=== PATIENT | female | born 1990 | race Caucasian/White ===

== ENCOUNTER 2024-06-07 19:01 | Inpatient (IN) | payer MEDICAID, OTHER ==
[~2024-06-07] VITALS: Ht 157.5 cm; Wt 47.6 kg
[~2024-06-07 19:01] MED LIST: INSU3INS6 SUBCUT
[2024-06-07] MEDS: DEXTROSE 50% WATER 50ML SYRINGE IV ONE ×2 (19:44→21:46)
[2024-06-07] MEDS: NOREPINEPHRINE 8MG/250ML PMX 250 ML IV ONE (19:47)
[2024-06-07] MEDS: SODIUM CHLORIDE 0.9% (SEPSIS BOLUS) IV ONE (19:57)
[2024-06-07] MEDS ORDERED: EPINEPHRINE 10 MG in SODIUM CHLORIDE 0.9% 240 ML IV STA (20:00)
[2024-06-07] MEDS: CEFTRIAXONE 1GM/50ML 50 ML IV ONE (20:08)
[2024-06-07 20:32] LABS: BASOPHILS % 0.9 % (0.0-2.0); DIFFERENTIAL COMMENT 0; EOSINOPHILS % 3.3 % (0.0-5.0); LYMPHOCYTES % 11.3 % (20.0-50.0); MEAN CORPUSCULAR HEMOGLOBIN 28.3 pg (28.0-32.0); MEAN CORPUSCULAR HGB CONC 31.7 g/dL (31.0-37.0); MEAN CORPUSCULAR VOLUME 89.2 fL (81.0-99.0); MEAN PLATELET VOLUME 9.7 fl (7.4-10.4); MONOCYTES % 5.9 % (2.0-8.0); NEUTROPHILS % 78.6 % (40.0-76.0); PLATELET 151 x1000/uL (130-400); RED BLOOD CELL COUNT 2.09 mill/uL (4.2-5.4); RED CELL DISTRIBUTION WIDTH 16.8 % (11.6-14.6); WHITE BLOOD COUNT 7.8 x1000/uL (4.5-11.0)
[2024-06-07 20:35] LABS: CHLORIDE 116 mEq/L (98-107); SODIUM 137 mEq/L (136-145)
[2024-06-07 20:37] LABS: CALCIUM 6.6 mg/dL (8.7-10.4); HEMOGLOBIN. 5.9 g/dL (12.0-16.0)
[2024-06-07 20:38] LABS: HEMATOCRIT. 18.6 % (36.0-48.0)
[2024-06-07 20:42] LABS: TROPONIN I HIGH SENSITIVITY 17 ng/L (3.0-34)
[2024-06-07 20:43] LABS: ALANINE AMINOTRANSFERASE 12 IU/L (10-49); ALBUMIN 2.9 g/dL (3.2-4.8); ASPARTATE AMINOTRANSFERASE 15 IU/L (<34)
[2024-06-07 20:44] LABS: BILIRUBIN TOTAL < 0.2 mg/dL (0.1-1.0); HCG SCREEN NEGATIVE; PROTEIN TOTAL 5.3 g/dL (6.0-8.3)
[2024-06-07 20:46] LABS: INR 1.1; PROTHROMBIN TIME 12.5 sec (9.6-11.0)
[2024-06-07 20:52] LABS: BILIRUBIN DIRECT < 0.1 mg/dL (<=3.0)
[2024-06-07 20:53] LABS: CARBON DIOXIDE < 10 mEq/L (21-32)
[2024-06-07 20:54] LABS: CREATININE 12.4 mg/dL (0.6-1.0); GLUCOSE 40 mg/dL (70-105); UREA NITROGEN BLOOD 120 mg/dL (9-23)
[2024-06-07] MEDS ORDERED: FUROSEMIDE 40MG/4ML VIAL IV NR (20:54)
[2024-06-07] MEDS ORDERED: FUROSEMIDE 100MG/10ML VIAL IV STA (20:54)
[2024-06-07] MEDS ORDERED: EPINEPHRINE 10 MG in SODIUM CHLORIDE 0.9% 240 ML IV NR (21:00)
[2024-06-07] MEDS: ALBUTEROL (0.083%) 2.5MG/3ML NEB HHN ONE (21:00)
[2024-06-07] MEDS ORDERED: ACETAMINOPHEN 325MG TABLET PO PRN (21:15)
[2024-06-07] MEDS ORDERED: IPRATROPIUM/ALBUTEROL 0.5-3(2.5)MG/3ML NEB HHN PRN (21:15)
[2024-06-07] MEDS ORDERED: ONDANSETRON HCL 4MG/2ML INJ IV PRN (21:15)
[2024-06-07] MEDS ORDERED: GUAIFENESIN 200MG/10ML SUGAR FREE UDC PO PRN (21:15)
[2024-06-07] MEDS ORDERED: SODIUM BICARBONATE 8.4% 50MEQ/50ML SYR IV NR (21:45)
[2024-06-07] MEDS: CALCIUM CHLORIDE 1GM/10ML SYR IV ONE (21:46)
[2024-06-07] MEDS: SODIUM ZIRCONIUM CYCLOSILICATE 10GM/PACKET PO ONE (21:47)
[2024-06-07] MEDS: FUROSEMIDE 40MG/4ML VIAL IV NR (21:47)
[2024-06-07] MEDS: SODIUM BICARBONATE 8.4% 50MEQ/50ML SYR IV ONE (21:47)
[2024-06-07] MEDS: VANCOMYCIN 1G PREMIX 200 ML IV NR (22:07)
[2024-06-07] MEDS: SODIUM BICARBONATE 8.4% 50MEQ/50ML SYR IV NR (22:07)
[2024-06-07 22:15] LABS: BG BASE EXCESS -16.6 mmol/L (-2.0-3.0); BG CARBOXYHEMOGLOBIN 0.6 % (0.5-1.5); BG DEOXYHEMOGLOBIN 5.7 % (0.0-5.0); BG FRACTION INSPIRED OXYGEN 21; BG OXYGEN SATURATION 94.3 % (94.0-98.0); BG OXYHEMOGLOBIN 93.7 % (94.0-98.0); BG PCO2 33.5 mmHg (32.0-45.0); BG PH 7.136 (7.350-7.450); BG PO2 81.7 mmHg (83.0-108.0); BG SAMPLE SITE RIGHT RADIAL; BG TOTAL HEMOGLOBIN 6.6 g/dL (12.0-16.0); BG VENT MODE ROOM AIR
[2024-06-07 23:35] VITALS: PULSE 45; RESP 12; O2SAT 98
[2024-06-07 23:45] VITALS: BP 139/78; PULSE 45; RESP 15; O2SAT 99
[2024-06-07] MEDS ORDERED: ALBUTEROL (0.083%) 2.5MG/3ML NEB HHN NR (23:45)
[2024-06-08] VITALS (45 sets, daily range): BP systolic 107–197; BP diastolic 63–107; PULSE 45–95; RESP 10–19; TEMP 32.05812–38.892; O2SAT 94–100
[2024-06-08] MEDS: SODIUM POLYSTYRENE SULFONATE 15 G/60 ML BOT PO NR (00:09)
[2024-06-08] MEDS: CALCIUM CHLORIDE 1GM/10ML SYR IV NR ×2 (00:09→04:41)
[2024-06-08] MEDS: FAMOTIDINE 20MG/2ML VIAL IV SCH (00:09)
[2024-06-08] MEDS: DEXTROSE 50% WATER 50ML SYRINGE IV NR ×2 (00:11→04:41)
[2024-06-08] MEDS: INSULIN REGULAR (HUMULIN R) 1000UNITS/10ML VIAL IV NR ×2 (00:12→04:42)
[2024-06-08] MEDS: PIPERACILLIN/TAZO 3.375G/50ML IV SCH (00:35)
[2024-06-08 01:58] LABS: CHLORIDE 117 mEq/L (98-107); POTASSIUM 6.1 mEq/L (3.5-5.1); SODIUM 138 mEq/L (136-145)
[2024-06-08 02:00] LABS: CALCIUM 8.2 mg/dL (8.7-10.4)
[2024-06-08 02:04] LABS: GLUCOSE 79 mg/dL (70-105)
[2024-06-08] MEDS: MUPIROCIN 2% OINT 15GM TOP SCH (02:11)
[2024-06-08] MEDS: SODIUM BICARBONATE 100 MEQ in SODIUM CHLORIDE 0.45% 900 ML IV SCH (02:11)
[2024-06-08 02:14] LABS: HEMATOCRIT 24.5 % (36.0-48.0); HEMOGLOBIN 7.7 g/dL (12.0-16.0)
[2024-06-08 02:16] LABS: CARBON DIOXIDE < 10 mEq/L (21-32)
[2024-06-08 02:17] LABS: CREATININE 11.7 mg/dL (0.6-1.0); UREA NITROGEN BLOOD 103 mg/dL (9-23)
[2024-06-08 03:22] LABS: FERRITIN 612 ng/mL (10-291)
[2024-06-08 03:23] LABS: FOLIC ACID (FOLATE) SERUM 5.26 ng/mL (>5.38)
[2024-06-08 03:44] LABS: HEPATITIS B SURFACE ANTIGEN NEGATIVE (Negative)
[2024-06-08 03:54] LABS: HEPATITIS A AB IGM NEGATIVE (Negative); HEPATITIS B CORE AB IGM NEGATIVE (Negative)
[2024-06-08 03:55] LABS: HEPATITIS C AB NON REACTIVE (Neg) (Negative)
[2024-06-08 04:35] LABS: HIV 1/2 AB P24AG Negative (Negative)
[2024-06-08 04:55] LABS: VITAMIN B12 SERUM > 2000 pg/mL (211-911)
[2024-06-08] MEDS: CLONIDINE 0.1MG TABLET PO PRN (05:55)
[2024-06-08 06:48] LABS: CALCIUM 9.2 mg/dL (8.7-10.4); POTASSIUM 5.6 mEq/L (3.5-5.1)
[2024-06-08 06:50] LABS: CREATINE KINASE MB FRACTION 7.5 ng/mL (0.5-3.6)
[2024-06-08 06:53] LABS: HEMATOCRIT. 23.7 % (36.0-48.0); HEMOGLOBIN. 7.7 g/dL (12.0-16.0); MEAN CORPUSCULAR HGB CONC 32.3 g/dL (31.0-37.0); MEAN PLATELET VOLUME 9.4 fl (7.4-10.4); PLATELET 160 x1000/uL (130-400); RED BLOOD CELL COUNT 2.64 mill/uL (4.2-5.4); T4 FREE 0.65 ng/dL (0.89-1.76); WHITE BLOOD COUNT 7.3 x1000/uL (4.5-11.0)
[2024-06-08 06:54] LABS: THYROID STIMULATING HORMONE 4.87 uIU/mL (0.55-4.78)
[2024-06-08 07:05] LABS: DIFFERENTIAL COMMENT 1
[2024-06-08] MEDS: DEXTROSE 50% WATER 50ML SYRINGE IV PRN (08:09)
[2024-06-08] MEDS: DEXT 5%/0.45% NACL 1000ML 1,000 ML IV SCH (08:09)
[2024-06-08 08:27] LABS: PHOSPHORUS 8.9 mg/dL (2.5-4.9)
[2024-06-08] MEDS: LIDOCAINE HCL 1% 10 MG/ML 10ML VIAL ONE (09:30)
[2024-06-08] MEDS: SODIUM BICARBONATE 4% 2.4MEQ/5ML VIAL IV ONE (09:30)
[2024-06-08] MEDS: PIPERACILLIN/TAZO 3.375G/50ML 50 ML IV NR (09:33)
[2024-06-08 11:48] LABS: AMMONIA 81 uMol/L (<32)
[2024-06-08 13:22] LABS: BODY FLUID WBC 242 /cu mm (0-200)
[2024-06-08 13:23] LABS: BODY FLUID RBC 35 /cu mm (0-2000)
[2024-06-08] MEDS: HYDRALAZINE 20MG/ML VIAL IV NR ×2 (13:40→16:18)
[2024-06-08 13:55] LABS: BODY FLUID MONOCYTES 64 %
[2024-06-08] MEDS: SEVELAMER CARBONATE 800 MG TABLET PO SCH (14:22)
[2024-06-08] MEDS: MANNITOL 12.5G (25%) VIAL 50ML IV SCH (14:22)
[2024-06-08] MEDS: FOLIC ACID 1MG TABLET PO SCH (14:23)
[2024-06-08] MEDS: ACETAMINOPHEN 325MG TABLET PO PRN (14:24)
[2024-06-08 16:51] LABS: NUCLEATED RED BLOOD CELLS 1 /100 WBC
[2024-06-08 16:52] LABS: ANISOCYTOSIS 1+; PLATELET ESTIMATE NORMAL
[2024-06-08] MEDS: HYDRALAZINE HCL 25MG TABLET PO SCH (22:20)
[2024-06-09] VITALS (47 sets, daily range): BP systolic 147–185; BP diastolic 73–125; PULSE 72–91; RESP 8–16; TEMP 36.44736–37.16964; O2SAT 90–100
[2024-06-09 05:33] LABS: BASOPHILS % 0.8 % (0.0-2.0); EOSINOPHILS % 1.5 % (0.0-5.0); HEMATOCRIT. 23.5 % (36.0-48.0); HEMOGLOBIN. 7.9 g/dL (12.0-16.0); LYMPHOCYTES % 9.1 % (20.0-50.0); MEAN CORPUSCULAR HEMOGLOBIN 29.3 pg (28.0-32.0); MEAN CORPUSCULAR HGB CONC 33.5 g/dL (31.0-37.0); MEAN CORPUSCULAR VOLUME 87.4 fL (81.0-99.0); MEAN PLATELET VOLUME 9.2 fl (7.4-10.4); MONOCYTES % 7.4 % (2.0-8.0); NEUTROPHILS % 81.2 % (40.0-76.0); PLATELET 148 x1000/uL (130-400); RED BLOOD CELL COUNT 2.68 mill/uL (4.2-5.4); WHITE BLOOD COUNT 8.4 x1000/uL (4.5-11.0)
[2024-06-09 05:37] LABS: CARBON DIOXIDE 15 mEq/L (21-32); CHLORIDE 105 mEq/L (98-107); POTASSIUM 4.2 mEq/L (3.5-5.1); SODIUM 138 mEq/L (136-145)
[2024-06-09 05:38] LABS: CALCIUM 7.3 mg/dL (8.7-10.4)
[2024-06-09 05:42] LABS: IRON 27 ug/dL (50-170)
[2024-06-09 05:43] LABS: UREA NITROGEN BLOOD 62 mg/dL (9-23)
[2024-06-09 05:44] LABS: AMMONIA < 17 uMol/L (<32)
[2024-06-09 05:45] LABS: PHOSPHORUS 5.8 mg/dL (2.5-4.9); PREALBUMIN 11.3 mg/dl (10.0-40.0); TOTAL IRON BINDING CAPACITY 187 ug/dl (250-425)
[2024-06-09 06:15] LABS: CREATININE 7.5 mg/dL (0.6-1.0); GLUCOSE 406 mg/dL (70-105)
[2024-06-09] MEDS: BLOOD SUGAR DIAGNOSTIC STRIP TEST SCH (08:03)
[2024-06-09] MEDS: SODIUM BICARBONATE 100 MEQ in SODIUM CHLORIDE 0.45% 900 ML IV SCH (08:14)
[2024-06-09] MEDS: INSULIN LISPRO 100 UNITS/ML SUBCUT SCH ×2 (08:15→08:16)
[2024-06-09] MEDS: NIFEDIPINE XL 30MG TAB PO SCH (08:15)
[2024-06-09 09:07] LABS: COMPLEMENT C3 80 mg/dL (82-167); COMPLEMENT C4 30 mg/dL (12-38)
[2024-06-09 13:07] LABS: ANTI-NUCLEAR ANTIBODIES DIRECT Negative (Negative)
[2024-06-09] MEDS: VANCOMYCIN 500MG PREMIX 100 ML IV SCH (13:36)
[2024-06-09] MEDS: HYDRALAZINE HCL 25MG TABLET PO SCH (13:37)
[2024-06-09] MEDS ORDERED: HYDRALAZINE HCL 25MG TABLET PO SCH (14:00)
[2024-06-09 15:26] LABS: CLARITY URINE CLEAR (CLEAR); COLOR URINE YELLOW (YELLOW); GLUCOSE URINE 3+ (NEGATIVE); KETONES URINE 2+ (NEGATIVE); LEUKOCYTE ESTERASE URINE NEGATIVE (NEGATIVE); NITRITE URINE NEGATIVE (NEGATIVE); OCCULT BLOOD URINE 2+ (NEGATIVE); PROTEIN URINE 3+ (NEGATIVE); SPECIFIC GRAVITY URINE 1.017 (1.005-1.030); UROBILINOGEN URINE 0.2 E.U./dL (0.2-1.0)
[2024-06-09 16:00] LABS: WBC URINE 0-2 /hpf (0-2)
[2024-06-09 16:01] LABS: BACTERIA URINE NONE SEEN; RBC URINE 15-25 /hpf (0-2); SQUAMOUS EPITHELIAL CELL URINE RARE /lpf (RARE/1+)
[2024-06-09] MEDS: INSULIN GLARGINE 100 UNITS/ML SUBCUT SCH (21:29)
[2024-06-10] VITALS (14 sets, daily range): BP systolic 132–185; BP diastolic 77–106; PULSE 68–77; RESP 12–24; TEMP 36.22512–37.00296; O2SAT 92–100
[2024-06-10] MEDS: DEXT 10% WATER 1,000 ML IV SCH ×2 (06:48→13:00)
[2024-06-10 07:02] LABS: DIFFERENTIAL COMMENT 1; HEMATOCRIT. 23.2 % (36.0-48.0); HEMOGLOBIN. 7.5 g/dL (12.0-16.0); MEAN CORPUSCULAR HGB CONC 32.5 g/dL (31.0-37.0); MEAN CORPUSCULAR VOLUME 86.2 fL (81.0-99.0); MEAN PLATELET VOLUME 8.6 fl (7.4-10.4); PLATELET 146 x1000/uL (130-400); RED BLOOD CELL COUNT 2.69 mill/uL (4.2-5.4); RED CELL DISTRIBUTION WIDTH 15.8 % (11.6-14.6)
[2024-06-10 07:07] LABS: POTASSIUM 3.4 mEq/L (3.5-5.1)
[2024-06-10 07:08] LABS: CALCIUM 6.4 mg/dL (8.7-10.4)
[2024-06-10 07:16] LABS: PHOSPHORUS 4.6 mg/dL (2.5-4.9)
[2024-06-10] MEDS: INSULIN LISPRO 100 UNITS/ML SUBCUT SCH (07:20)
[2024-06-10 07:27] LABS: CREATININE 7.1 mg/dL (0.6-1.0)
[2024-06-10] MEDS: PANTOPRAZOLE SODIUM 40 MG/VIAL IV SCH (09:59)
[2024-06-10] MEDS: NIFEDIPINE XL 30MG TAB PO SCH (09:59)
[2024-06-10 10:26] LABS: ERYTHROCYTE SEDIMENTATION RATE 7 mm/hr (0-20)
[2024-06-10] MEDS: CALCIUM ACETATE 667MG CAPSULE PO SCH (12:20)
[2024-06-10] MEDS: VANCOMYCIN 500MG PREMIX 100 ML IV SCH (23:01)
[2024-06-10] MEDS: INSULIN GLARGINE 100 UNITS/ML SUBCUT SCH (23:07)
[2024-06-11] VITALS: BP 144/81; PULSE 83; RESP 13; TEMP 36.78072; O2SAT 95
[2024-06-11 00:22] LABS: CREATININE URINE RANDOM 87.3 mg/dL
[2024-06-11 04:00] VITALS: BP 153/78; PULSE 85; RESP 11; TEMP 37.11408; O2SAT 96
[2024-06-11 08:00] VITALS: BP 170/83; PULSE 83; RESP 12; TEMP 37.2252; O2SAT 94
[2024-06-11 08:04] LABS: PLATELET ESTIMATE NORMAL
[2024-06-11 11:58] LABS: BASOPHILS % 0.7 % (0.0-2.0); EOSINOPHILS % 4.9 % (0.0-5.0); LYMPHOCYTES % 12.3 % (20.0-50.0); MEAN CORPUSCULAR HEMOGLOBIN 29.1 pg (28.0-32.0); MEAN CORPUSCULAR HGB CONC 33.6 g/dL (31.0-37.0); MEAN CORPUSCULAR VOLUME 86.5 fL (81.0-99.0); MEAN PLATELET VOLUME 8.3 fl (7.4-10.4); MONOCYTES % 9.6 % (2.0-8.0); NEUTROPHILS % 72.5 % (40.0-76.0); PLATELET 131 x1000/uL (130-400); RED BLOOD CELL COUNT 2.43 mill/uL (4.2-5.4); RED CELL DISTRIBUTION WIDTH 16.1 % (11.6-14.6); WHITE BLOOD COUNT 7.1 x1000/uL (4.5-11.0)
[2024-06-11 12:00] VITALS: BP 159/90; PULSE 80; RESP 12; TEMP 36.83628; O2SAT 95
[2024-06-11 12:00] LABS: POTASSIUM 3.7 mEq/L (3.5-5.1)
[2024-06-11 12:02] LABS: CALCIUM 6.8 mg/dL (8.7-10.4)
[2024-06-11 12:42] LABS: CREATININE 5.2 mg/dL (0.6-1.0)
[2024-06-11] MEDS: MAGNESIUM/ALUMINUM HYDROXIDE/SIMETHICONE 30ML UDC PO PRN (13:31)
[2024-06-11 16:00] VITALS: BP 156/73; PULSE 71; RESP 14; TEMP 36.83628; O2SAT 98
[2024-06-11 20:00] VITALS: BP 153/83; PULSE 82; RESP 14; TEMP 36.9474; O2SAT 95
[2024-06-12] VITALS (24 sets, daily range): BP systolic 119–217; BP diastolic 72–111; PULSE 74–84; RESP 14–25; TEMP 36.61404–36.83628; O2SAT 85–99
[2024-06-12 08:02] LABS: POTASSIUM 4.1 mEq/L (3.5-5.1)
[2024-06-12 08:03] LABS: CALCIUM 6.6 mg/dL (8.7-10.4)
[2024-06-12 08:42] LABS: BASOPHILS % 1.5 % (0.0-2.0); EOSINOPHILS % 5.5 % (0.0-5.0); HEMATOCRIT. 21.9 % (36.0-48.0); HEMOGLOBIN. 7.1 g/dL (12.0-16.0); LYMPHOCYTES % 16.7 % (20.0-50.0); MEAN CORPUSCULAR HEMOGLOBIN 28.2 pg (28.0-32.0); MEAN CORPUSCULAR HGB CONC 32.3 g/dL (31.0-37.0); MEAN CORPUSCULAR VOLUME 87.3 fL (81.0-99.0); MEAN PLATELET VOLUME 8.4 fl (7.4-10.4); MONOCYTES % 9.1 % (2.0-8.0); NEUTROPHILS % 67.2 % (40.0-76.0); PLATELET 130 x1000/uL (130-400); RED BLOOD CELL COUNT 2.51 mill/uL (4.2-5.4); RED CELL DISTRIBUTION WIDTH 15.6 % (11.6-14.6); WHITE BLOOD COUNT 5.9 x1000/uL (4.5-11.0)
[2024-06-12 09:15] LABS: CREATININE 5.6 mg/dL (0.6-1.0)
[2024-06-12] MEDS: NIFEDIPINE XL 60MG TAB PO SCH (10:45)
[2024-06-12] MEDS: CLONIDINE 0.1MG TABLET PO SCH (13:03)
[2024-06-12] MEDS: HYDRALAZINE HCL 100MG TABLET PO SCH (13:15)
[2024-06-13] VITALS: BP 155/84; PULSE 89; RESP 16; TEMP 36.72516; O2SAT 92
[2024-06-13 04:00] VITALS: BP 163/94; PULSE 89; RESP 15; O2SAT 94
[2024-06-13 05:52] LABS: BASOPHILS % 1.1 % (0.0-2.0); EOSINOPHILS % 4.5 % (0.0-5.0); HEMATOCRIT. 32.4 % (36.0-48.0); HEMOGLOBIN. 10.5 g/dL (12.0-16.0); LYMPHOCYTES % 11.4 % (20.0-50.0); MEAN CORPUSCULAR HEMOGLOBIN 28.6 pg (28.0-32.0); MEAN CORPUSCULAR HGB CONC 32.5 g/dL (31.0-37.0); MEAN CORPUSCULAR VOLUME 88.1 fL (81.0-99.0); MEAN PLATELET VOLUME 8.6 fl (7.4-10.4); MONOCYTES % 7.1 % (2.0-8.0); NEUTROPHILS % 75.9 % (40.0-76.0); PLATELET 128 x1000/uL (130-400); RED BLOOD CELL COUNT 3.67 mill/uL (4.2-5.4); RED CELL DISTRIBUTION WIDTH 15.9 % (11.6-14.6)
[2024-06-13 05:55] LABS: POTASSIUM 4.5 mEq/L (3.5-5.1)
[2024-06-13 05:57] LABS: CALCIUM 6.8 mg/dL (8.7-10.4)
[2024-06-13 06:01] LABS: CREATININE 4.5 mg/dL (0.6-1.0)
[2024-06-13 06:12] LABS: INR 1.1; PARTIAL THROMBOPLASTIN TIME 29.8 sec (23.4-31.0); PROTHROMBIN TIME 11.7 sec (9.6-11.0)
[2024-06-13 08:00] VITALS: BP 176/94; PULSE 93; RESP 17; TEMP 36.89184; O2SAT 93
[2024-06-13] MEDS: LIDOCAINE HCL 1% 10 MG/ML 10ML VIAL ONE (08:07)
[2024-06-13] MEDS: SODIUM BICARBONATE 4% 2.4MEQ/5ML VIAL IV ONE (08:07)
[2024-06-13 12:00] VITALS: BP 128/80; PULSE 77; RESP 17; TEMP 36.78072; O2SAT 98
[2024-06-13] MEDS: INSULIN LISPRO 100 UNITS/ML SUBCUT SCH ×2 (12:41)
[2024-06-13 16:00] VITALS: BP 138/78; PULSE 79; RESP 19; TEMP 36.6696; O2SAT 94
[2024-06-13 20:00] VITALS: BP 137/77; PULSE 80; RESP 18; TEMP 36.78072; O2SAT 94
[2024-06-13] MEDS: INSULIN GLARGINE 100 UNITS/ML SUBCUT SCH (22:18)
[2024-06-14] VITALS (15 sets, daily range): BP systolic 123–164; BP diastolic 74–96; PULSE 69–81; RESP 16–28; TEMP 36.22512–37.11408; O2SAT 93–100
[2024-06-14 05:44] LABS: CALCIUM 6.7 mg/dL (8.7-10.4); POTASSIUM 4.7 mEq/L (3.5-5.1)
[2024-06-14 05:47] LABS: T4 FREE 0.95 ng/dL (0.89-1.76)
[2024-06-14 05:48] LABS: THYROID STIMULATING HORMONE 4.88 uIU/mL (0.55-4.78)
[2024-06-14 05:52] LABS: CREATININE 5.5 mg/dL (0.6-1.0)
[2024-06-14 06:21] LABS: BASOPHILS % 1.3 % (0.0-2.0); EOSINOPHILS % 5.2 % (0.0-5.0); HEMATOCRIT. 29.2 % (36.0-48.0); HEMOGLOBIN. 9.5 g/dL (12.0-16.0); LYMPHOCYTES % 16.9 % (20.0-50.0); MEAN CORPUSCULAR HEMOGLOBIN 28.7 pg (28.0-32.0); MEAN CORPUSCULAR HGB CONC 32.7 g/dL (31.0-37.0); MEAN CORPUSCULAR VOLUME 87.8 fL (81.0-99.0); MEAN PLATELET VOLUME 8.4 fl (7.4-10.4); MONOCYTES % 8.6 % (2.0-8.0); PLATELET 128 x1000/uL (130-400); RED BLOOD CELL COUNT 3.33 mill/uL (4.2-5.4); RED CELL DISTRIBUTION WIDTH 15.3 % (11.6-14.6); WHITE BLOOD COUNT 7.1 x1000/uL (4.5-11.0)
[2024-06-14] MEDS: CARVEDILOL 6.25 MG TABLET PO SCH (21:30)
[2024-06-15] VITALS (7 sets, daily range): BP systolic 98–189; BP diastolic 54–103; PULSE 70–85; RESP 15–18; TEMP 36.50292–36.83628; O2SAT 94–97
[2024-06-15] MEDS: HYDRALAZINE 20MG/ML VIAL IV PRN (06:56)
[2024-06-15 07:07] LABS: POTASSIUM 4.9 mEq/L (3.5-5.1)
[2024-06-15 07:09] LABS: CALCIUM 7.1 mg/dL (8.7-10.4)
[2024-06-15 07:13] LABS: CREATININE 4.6 mg/dL (0.6-1.0)
[2024-06-15 07:14] LABS: BASOPHILS % 1.1 % (0.0-2.0); EOSINOPHILS % 4.4 % (0.0-5.0); HEMATOCRIT. 31.4 % (36.0-48.0); HEMOGLOBIN. 10.1 g/dL (12.0-16.0); LYMPHOCYTES % 10.7 % (20.0-50.0); MEAN CORPUSCULAR HEMOGLOBIN 28.4 pg (28.0-32.0); MEAN CORPUSCULAR HGB CONC 32.2 g/dL (31.0-37.0); MEAN CORPUSCULAR VOLUME 88.3 fL (81.0-99.0); MEAN PLATELET VOLUME 8.3 fl (7.4-10.4); MONOCYTES % 8.5 % (2.0-8.0); NEUTROPHILS % 75.3 % (40.0-76.0); PLATELET 130 x1000/uL (130-400); RED BLOOD CELL COUNT 3.56 mill/uL (4.2-5.4); RED CELL DISTRIBUTION WIDTH 15.1 % (11.6-14.6); WHITE BLOOD COUNT 7.6 x1000/uL (4.5-11.0)
[2024-06-15] MEDS: INSULIN LISPRO 100 UNITS/ML SUBCUT SCH ×2 (07:57→17:37)
[2024-06-15] MEDS: NIFEDIPINE XL 60MG TAB PO SCH (08:29)
[2024-06-15 09:11] LABS: ANTI-MYELOPEROXIDASE AB < 0.2 units (0.0-0.9); ANTI-PROTEINASE 3 ABS < 0.2 units (0.0-0.9)
[2024-06-15] MEDS: LABETALOL HCL 100MG TABLET PO SCH (09:30)
[2024-06-15] MEDS: CLONIDINE 0.2MG TABLET PO SCH (12:15)
[2024-06-15 13:07] LABS: ATYPICAL P-ANCA <1:20 titer (Neg:<1:20); CYTOPLASMIC C-ANCA <1:20 titer (Neg:<1:20); PERINUCLEAR P-ANCA <1:20 titer (Neg:<1:20)
[2024-06-15] MEDS: INSULIN GLARGINE 100 UNITS/ML SUBCUT SCH (21:27)
[2024-06-15] MEDS ORDERED: INSULIN GLARGINE 100 UNITS/ML SUBCUT SCH (22:00)
[2024-06-15] MEDS: INSULIN LISPRO 100 UNITS/ML SUBCUT NR (23:55)
[2024-06-16] VITALS (17 sets, daily range): BP systolic 127–225; BP diastolic 86–118; PULSE 80–95; RESP 15–21; TEMP 36.44736–37.00296; O2SAT 92–99
[2024-06-16 07:15] LABS: BASOPHILS % 1.4 % (0.0-2.0); EOSINOPHILS % 4.6 % (0.0-5.0); HEMATOCRIT. 28.7 % (36.0-48.0); HEMOGLOBIN. 9.2 g/dL (12.0-16.0); LYMPHOCYTES % 13.7 % (20.0-50.0); MEAN CORPUSCULAR HEMOGLOBIN 28.2 pg (28.0-32.0); MEAN CORPUSCULAR HGB CONC 32.1 g/dL (31.0-37.0); MEAN CORPUSCULAR VOLUME 87.7 fL (81.0-99.0); MEAN PLATELET VOLUME 8.5 fl (7.4-10.4); NEUTROPHILS % 70.3 % (40.0-76.0); PLATELET 141 x1000/uL (130-400); RED BLOOD CELL COUNT 3.28 mill/uL (4.2-5.4); WHITE BLOOD COUNT 7.3 x1000/uL (4.5-11.0)
[2024-06-16 07:34] LABS: CHLORIDE 107 mEq/L (98-107); POTASSIUM 4.9 mEq/L (3.5-5.1); SODIUM 139 mEq/L (136-145)
[2024-06-16 07:35] LABS: CARBON DIOXIDE 25 mEq/L (21-32)
[2024-06-16 07:40] LABS: GLUCOSE 107 mg/dL (70-105); UREA NITROGEN BLOOD 59 mg/dL (9-23)
[2024-06-16 07:41] LABS: ALANINE AMINOTRANSFERASE 67 IU/L (10-49)
[2024-06-16 07:42] LABS: ALBUMIN 2.9 g/dL (3.2-4.8); ASPARTATE AMINOTRANSFERASE 47 IU/L (<34); BILIRUBIN TOTAL < 0.2 mg/dL (0.1-1.0); CREATININE 5.3 mg/dL (0.6-1.0); PROTEIN TOTAL 5.5 g/dL (6.0-8.3)
[2024-06-16] MEDS: NIFEDIPINE XL 30MG TAB PO SCH (08:04)
[2024-06-16] MEDS: ENOXAPARIN 30MG/0.3ML SYR SUBCUT SCH (11:00)
[2024-06-16] MEDS ORDERED: COR6 MT (14:33)
[2024-06-16] MEDS ORDERED: SPIR25TA MT (14:34)
[2024-06-16] MEDS ORDERED: LOSA50TA41 MT (14:34)
[2024-06-16] MEDS ORDERED: FURO-151 IV (14:34)
[2024-06-16] MEDS ORDERED: ALBU05 NEB (14:37)
[2024-06-16] MEDS ORDERED: ASPI-1406 MT (14:37)
[2024-06-16] MEDS ORDERED: LIP40 MT (14:38)
[2024-06-16] MEDS ORDERED: CLON-493 PO (14:38)
[2024-06-16] MEDS ORDERED: NALO4SPR IV (14:38)
[2024-06-16] MEDS ORDERED: TOPUD PO (14:39)
[2024-06-16] MEDS ORDERED: ONDA4TAB50 IV (14:39)
[2024-06-16] MEDS: TRAMADOL HCL/ACETAMINOPHEN 37.5/325MG TABLET PO NR (15:40)
[2024-06-16] MEDS: CLONIDINE 0.1MG TABLET PO PRN (16:37)
[2024-06-16] MEDS: ERGOCALCIFEROL 50000UNITS CAPSULE PO SCH (16:48)
[2024-06-16] MEDS: INSULIN LISPRO 100 UNITS/ML SUBCUT SCH (16:49)
[2024-06-16 17:10] LABS: CALCIUM 7.2 mg/dL (8.7-10.4)
[2024-06-16 17:17] LABS: CREATINE KINASE 167 IU/L (34-145); PHOSPHORUS 4.6 mg/dL (2.5-4.9)
[2024-06-16] MEDS: NIFEDIPINE XL 30MG TAB PO NR (17:57)
[2024-06-16] MEDS: DICLOFENAC SODIUM 1% GEL 50GM TOP SCH (22:19)
[2024-06-16] MEDS: CALCIUM CARBONATE/VITAMIN D3 500MG TABLET PO SCH (23:12)
[2024-06-17] VITALS (8 sets, daily range): BP systolic 101–207; BP diastolic 65–101; PULSE 76–98; RESP 13–21; TEMP 36.44736–37.72524; O2SAT 94–98
[2024-06-17 06:47] LABS: CHLORIDE 99 mEq/L (98-107); POTASSIUM 4.7 mEq/L (3.5-5.1); SODIUM 132 mEq/L (136-145)
[2024-06-17 06:48] LABS: CARBON DIOXIDE 24 mEq/L (21-32)
[2024-06-17 06:49] LABS: CALCIUM 7.4 mg/dL (8.7-10.4)
[2024-06-17 06:50] LABS: PROTHROMBIN TIME 10.9 sec (9.6-11.0)
[2024-06-17 06:53] LABS: GLUCOSE 267 mg/dL (70-105); UREA NITROGEN BLOOD 34 mg/dL (9-23)
[2024-06-17 06:55] LABS: ALBUMIN 2.9 g/dL (3.2-4.8); LACTATE DEHYDROGENASE 305 IU/L (120-246)
[2024-06-17 06:56] LABS: PHOSPHORUS 3.6 mg/dL (2.5-4.9)
[2024-06-17 07:58] LABS: BASOPHILS % 1.7 % (0.0-2.0); HEMATOCRIT. 29.2 % (36.0-48.0); HEMOGLOBIN. 9.6 g/dL (12.0-16.0); LYMPHOCYTES % 11.1 % (20.0-50.0); MEAN CORPUSCULAR HGB CONC 32.8 g/dL (31.0-37.0); MEAN CORPUSCULAR VOLUME 88.2 fL (81.0-99.0); MEAN PLATELET VOLUME 8.6 fl (7.4-10.4); MONOCYTES % 9.2 % (2.0-8.0); PLATELET 135 x1000/uL (130-400); RED BLOOD CELL COUNT 3.32 mill/uL (4.2-5.4); RED CELL DISTRIBUTION WIDTH 15.4 % (11.6-14.6); WHITE BLOOD COUNT 6.9 x1000/uL (4.5-11.0)
[2024-06-17] MEDS: NIFEDIPINE XL 30MG TAB PO SCH ×2 (09:04→17:28)
[2024-06-17] MEDS: LABETALOL HCL 200MG TABLET PO SCH (09:05)
[2024-06-17 12:47] LABS: PROTEIN BODY FLUID 2.6 gm/dL
[2024-06-17 12:48] LABS: PROTEIN BODY FLUID < 2.0 gm/dL
[2024-06-17 14:08] LABS: BODY FLUID MONOCYTES 64 %
[2024-06-17 14:13] LABS: BODY FLUID RBC 58125 /cu mm (0-2000); BODY FLUID WBC 222 /cu mm (0-200)
[2024-06-17 14:34] LABS: BODY FLUID RBC 908 /cu mm (0-2000); BODY FLUID WBC 158 /cu mm (0-200)
[2024-06-17 14:40] LABS: *AMPHETAMINES SCREEN URINE NEGATIVE (NEGATIVE); *BARBITURATES SCREEN URINE NEGATIVE (NEGATIVE); *BENZODIAZEPINES SCREEN URINE NEGATIVE (NEGATIVE); *COCAINE SCREEN URINE NEGATIVE (NEGATIVE)
[2024-06-17 14:41] LABS: BODY FLUID MONOCYTES 83 %
[2024-06-17 14:41] LABS: CANNABINOID URINE SCREEN NEGATIVE (NEGATIVE); ECSTASY MDMA SCREEN URINE NEGATIVE (NEGATIVE); METHADONE URINE SCREEN NEGATIVE (NEGATIVE); OPIATES URINE SCREEN NEGATIVE (NEGATIVE); PHENCYCLIDINE URINE SCREEN NEGATIVE (NEGATIVE)
[2024-06-17] MEDS ORDERED: IPRATROPIUM/ALBUTEROL 0.5-3(2.5)MG/3ML NEB HHN PRN (16:00)
[2024-06-18] VITALS (17 sets, daily range): BP systolic 138–173; BP diastolic 78–94; PULSE 78–88; RESP 14–19; TEMP 36.44736–37.28076; O2SAT 93–98
[2024-06-18] MEDS: SODIUM BICARBONATE 4% 2.4MEQ/5ML VIAL IV ONE (08:32)
[2024-06-18 09:21] LABS: BASOPHILS % 1.3 % (0.0-2.0); EOSINOPHILS % 4.2 % (0.0-5.0); HEMATOCRIT. 28.3 % (36.0-48.0); HEMOGLOBIN. 9.1 g/dL (12.0-16.0); LYMPHOCYTES % 14.5 % (20.0-50.0); MEAN CORPUSCULAR HEMOGLOBIN 28.7 pg (28.0-32.0); MEAN CORPUSCULAR HGB CONC 32.4 g/dL (31.0-37.0); MEAN CORPUSCULAR VOLUME 88.6 fL (81.0-99.0); MEAN PLATELET VOLUME 8.9 fl (7.4-10.4); MONOCYTES % 8.6 % (2.0-8.0); NEUTROPHILS % 71.4 % (40.0-76.0); PLATELET 153 x1000/uL (130-400); RED BLOOD CELL COUNT 3.19 mill/uL (4.2-5.4); WHITE BLOOD COUNT 6.8 x1000/uL (4.5-11.0)
[2024-06-18 09:50] LABS: CHLORIDE 104 mEq/L (98-107); POTASSIUM 5.8 mEq/L (3.5-5.1); SODIUM 134 mEq/L (136-145)
[2024-06-18 09:53] LABS: CALCIUM 7.6 mg/dL (8.7-10.4); CARBON DIOXIDE 26 mEq/L (21-32)
[2024-06-18 09:58] LABS: GLUCOSE 212 mg/dL (70-105); UREA NITROGEN BLOOD 56 mg/dL (9-23)
[2024-06-18 09:59] LABS: ALANINE AMINOTRANSFERASE 41 IU/L (10-49)
[2024-06-18 10:00] LABS: ALBUMIN 2.9 g/dL (3.2-4.8); ASPARTATE AMINOTRANSFERASE 25 IU/L (<34)
[2024-06-18 10:01] LABS: BILIRUBIN TOTAL < 0.2 mg/dL (0.1-1.0); PROTEIN TOTAL 5.4 g/dL (6.0-8.3)
[2024-06-18 10:03] LABS: BILIRUBIN DIRECT < 0.1 mg/dL (<=3.0)
[2024-06-18 10:04] LABS: CREATININE 5.4 mg/dL (0.6-1.0)
[2024-06-19 00:05] VITALS: BP 163/87; PULSE 95; RESP 15; TEMP 36.55848; O2SAT 99
[2024-06-19 04:05] VITALS: BP 157/88; PULSE 87; RESP 13; TEMP 36.44736; O2SAT 96
[2024-06-19 06:45] LABS: BASOPHILS % 1.4 % (0.0-2.0); EOSINOPHILS % 4.6 % (0.0-5.0); HEMATOCRIT. 28.3 % (36.0-48.0); HEMOGLOBIN. 9.1 g/dL (12.0-16.0); LYMPHOCYTES % 12.6 % (20.0-50.0); MEAN CORPUSCULAR HEMOGLOBIN 28.3 pg (28.0-32.0); MEAN CORPUSCULAR HGB CONC 32.1 g/dL (31.0-37.0); MEAN CORPUSCULAR VOLUME 88.2 fL (81.0-99.0); MEAN PLATELET VOLUME 8.7 fl (7.4-10.4); MONOCYTES % 8.5 % (2.0-8.0); NEUTROPHILS % 72.9 % (40.0-76.0); PLATELET 162 x1000/uL (130-400); RED BLOOD CELL COUNT 3.21 mill/uL (4.2-5.4); WHITE BLOOD COUNT 7.7 x1000/uL (4.5-11.0)
[2024-06-19 07:11] LABS: CARBON DIOXIDE 27 mEq/L (21-32); CHLORIDE 106 mEq/L (98-107); POTASSIUM 4.8 mEq/L (3.5-5.1); SODIUM 140 mEq/L (136-145)
[2024-06-19 07:12] LABS: CALCIUM 7.5 mg/dL (8.7-10.4)
[2024-06-19 07:17] LABS: CREATININE 4.2 mg/dL (0.6-1.0); GLUCOSE 168 mg/dL (70-105); UREA NITROGEN BLOOD 42 mg/dL (9-23)
[2024-06-19 08:00] VITALS: BP 189/94; PULSE 88; RESP 19; TEMP 36.61404; O2SAT 99
[2024-06-19 12:00] VITALS: BP 191/95; PULSE 82; RESP 20; TEMP 36.83628; O2SAT 99
[2024-06-19] MEDS: CLONIDINE 0.2MG TABLET PO SCH (12:53)
[2024-06-19 16:00] VITALS: BP 178/96; PULSE 75; RESP 18; TEMP 36.72516; O2SAT 96
[2024-06-19 20:05] VITALS: BP 147/81; PULSE 79; RESP 10; TEMP 36.28068; O2SAT 97
[2024-06-19] MEDS: MELATONIN 3MG TABLET PO SCH (21:54)
[2024-06-20] VITALS (15 sets, daily range): BP systolic 142–177; BP diastolic 79–96; PULSE 80–92; RESP 13–18; TEMP 36.22512–36.83628; O2SAT 97–99
[2024-06-20 06:27] LABS: BASOPHILS % 1.7 % (0.0-2.0); EOSINOPHILS % 5.7 % (0.0-5.0); HEMATOCRIT. 29.3 % (36.0-48.0); HEMOGLOBIN. 9.4 g/dL (12.0-16.0); LYMPHOCYTES % 12.7 % (20.0-50.0); MEAN CORPUSCULAR HEMOGLOBIN 28.6 pg (28.0-32.0); MEAN CORPUSCULAR HGB CONC 31.9 g/dL (31.0-37.0); MEAN CORPUSCULAR VOLUME 89.7 fL (81.0-99.0); MEAN PLATELET VOLUME 8.7 fl (7.4-10.4); MONOCYTES % 8.1 % (2.0-8.0); NEUTROPHILS % 71.8 % (40.0-76.0); PLATELET 187 x1000/uL (130-400); RED BLOOD CELL COUNT 3.26 mill/uL (4.2-5.4); RED CELL DISTRIBUTION WIDTH 14.9 % (11.6-14.6); WHITE BLOOD COUNT 8.2 x1000/uL (4.5-11.0)
[2024-06-20 06:45] LABS: CARBON DIOXIDE 26 mEq/L (21-32); CHLORIDE 105 mEq/L (98-107); POTASSIUM 5.8 mEq/L (3.5-5.1); SODIUM 137 mEq/L (136-145)
[2024-06-20 06:47] LABS: CALCIUM 7.5 mg/dL (8.7-10.4)
[2024-06-20 06:51] LABS: GLUCOSE 351 mg/dL (70-105)
[2024-06-20 06:52] LABS: UREA NITROGEN BLOOD 54 mg/dL (9-23)
[2024-06-20 06:54] LABS: PHOSPHORUS 5.1 mg/dL (2.5-4.9)
[2024-06-20 06:55] LABS: CREATININE 5.3 mg/dL (0.6-1.0)
[2024-06-20 08:11] LABS: ALPHA FETOPROTEIN TUMOR MARKER 2.4 ng/mL (0.0-6.4)
[2024-06-20] MEDS ORDERED: SODIUM POLYSTYRENE SULFONATE 15 G/60 ML BOT PO ONE (08:15)
[2024-06-20] MEDS: SODIUM ZIRCONIUM CYCLOSILICATE 10GM/PACKET PO NR (08:40)
[2024-06-20] MEDS ORDERED: INSULIN GLARGINE 100 UNITS/ML SUBCUT SCH (22:00)
[2024-06-20] MEDS: INSULIN GLARGINE 100 UNITS/ML SUBCUT SCH (22:30)
[2024-06-21 00:10] VITALS: BP 192/92; PULSE 90; RESP 13; TEMP 36.50292; O2SAT 98
[2024-06-21 04:08] LABS: CHLAMYDIA TRACHOMATIS NAA Negative (Negative); NEISSERIA GONORRHOEAE NAA Negative (Negative)
[2024-06-21 04:10] VITALS: BP 142/82; PULSE 85; RESP 15; TEMP 36.50292
[2024-06-21 07:24] LABS: CHLORIDE 104 mEq/L (98-107); SODIUM 140 mEq/L (136-145)
[2024-06-21 07:25] LABS: CALCIUM 7.8 mg/dL (8.7-10.4); CARBON DIOXIDE 31 mEq/L (21-32)
[2024-06-21 07:30] LABS: CREATININE 4.3 mg/dL (0.6-1.0); GLUCOSE 82 mg/dL (70-105); UREA NITROGEN BLOOD 46 mg/dL (9-23)
[2024-06-21 07:32] LABS: PHOSPHORUS 3.9 mg/dL (2.5-4.9)
[2024-06-21 07:57] LABS: MEAN CORPUSCULAR HEMOGLOBIN 28.3 pg (28.0-32.0); MEAN CORPUSCULAR HGB CONC 32.2 g/dL (31.0-37.0); MEAN CORPUSCULAR VOLUME 88.1 fL (81.0-99.0); PLATELET 208 x1000/uL (130-400); RED BLOOD CELL COUNT 3.18 mill/uL (4.2-5.4); RED CELL DISTRIBUTION WIDTH 14.7 % (11.6-14.6); WHITE BLOOD COUNT 7.7 x1000/uL (4.5-11.0)
[2024-06-21 08:00] VITALS: BP 150/88; PULSE 85; RESP 15; TEMP 37.05852; O2SAT 97
[2024-06-21] MEDS: CALCIUM ACETATE 667MG CAPSULE PO SCH (08:55)
[2024-06-21 12:00] VITALS: BP 189/94; PULSE 83; RESP 13; TEMP 36.78072; O2SAT 97
[2024-06-21 16:00] VITALS: BP 144/86; PULSE 82; RESP 11; TEMP 36.72516; O2SAT 100
[2024-06-21 20:00] VITALS: BP 136/79; PULSE 95; RESP 14; TEMP 36.78072; O2SAT 96
[2024-06-22] VITALS (13 sets, daily range): BP systolic 128–197; BP diastolic 72–102; PULSE 84–100; RESP 13–20; TEMP 36.55848–37.55856; O2SAT 64–98
[2024-06-22 07:28] LABS: BASOPHILS % 1.9 % (0.0-2.0); EOSINOPHILS % 5.6 % (0.0-5.0); HEMATOCRIT. 27.1 % (36.0-48.0); HEMOGLOBIN. 8.6 g/dL (12.0-16.0); LYMPHOCYTES % 14.6 % (20.0-50.0); MEAN CORPUSCULAR HEMOGLOBIN 28.3 pg (28.0-32.0); MEAN CORPUSCULAR HGB CONC 31.6 g/dL (31.0-37.0); MEAN CORPUSCULAR VOLUME 89.6 fL (81.0-99.0); MEAN PLATELET VOLUME 8.1 fl (7.4-10.4); MONOCYTES % 7.1 % (2.0-8.0); NEUTROPHILS % 70.8 % (40.0-76.0); PLATELET 211 x1000/uL (130-400); RED BLOOD CELL COUNT 3.02 mill/uL (4.2-5.4); RED CELL DISTRIBUTION WIDTH 14.7 % (11.6-14.6); WHITE BLOOD COUNT 8.1 x1000/uL (4.5-11.0)
[2024-06-22 07:40] LABS: CALCIUM 7.9 mg/dL (8.7-10.4); CARBON DIOXIDE 29 mEq/L (21-32); CHLORIDE 103 mEq/L (98-107); POTASSIUM 5.9 mEq/L (3.5-5.1); SODIUM 137 mEq/L (136-145)
[2024-06-22 07:46] LABS: GLUCOSE 113 mg/dL (70-105); UREA NITROGEN BLOOD 61 mg/dL (9-23)
[2024-06-22 07:48] LABS: PHOSPHORUS 4.1 mg/dL (2.5-4.9)
[2024-06-22 08:03] LABS: CREATININE 5.2 mg/dL (0.6-1.0)
[2024-06-22] MEDS: SODIUM POLYSTYRENE SULFONATE 15 G/60 ML BOT PO SCH (08:56)
[2024-06-22] MEDS: METOPROLOL TARTRATE 25MG TABLET PO NR (17:46)
[2024-06-22] MEDS ORDERED: NALOXONE HCL 0.4MG/ML VIAL IV PRN (18:45)
[2024-06-22] MEDS: TRAMADOL 50MG TABLET PO PRN (21:36)
[2024-06-22] MEDS: METOPROLOL TARTRATE 25MG TABLET PO SCH (21:38)
[2024-06-23] VITALS: BP 151/84; PULSE 96; RESP 16; TEMP 37.16964; O2SAT 89
[2024-06-23 03:00] VITALS: BP 156/88; PULSE 88; RESP 14; O2SAT 92
[2024-06-23 04:00] VITALS: BP 164/92; PULSE 85; RESP 15; TEMP 37.05852; O2SAT 90
[2024-06-23 07:39] LABS: CALCIUM 7.9 mg/dL (8.7-10.4); POTASSIUM 4.7 mEq/L (3.5-5.1)
[2024-06-23 07:40] LABS: CREATININE 4.1 mg/dL (0.6-1.0)
[2024-06-23 07:46] LABS: HEMOGLOBIN 8.7 g/dL (12.0-16.0); MEAN CORPUSCULAR HEMOGLOBIN 28.4 pg (28.0-32.0); MEAN CORPUSCULAR HGB CONC 32.2 g/dL (31.0-37.0); MEAN CORPUSCULAR VOLUME 88.1 fL (81.0-99.0); PHOSPHORUS 4.7 mg/dL (2.5-4.9); PLATELET 239 x1000/uL (130-400); RED BLOOD CELL COUNT 3.07 mill/uL (4.2-5.4); RED CELL DISTRIBUTION WIDTH 14.9 % (11.6-14.6); WHITE BLOOD COUNT 6.1 x1000/uL (4.5-11.0)
[2024-06-23 08:00] VITALS: BP 165/94; PULSE 79; RESP 19; TEMP 36.6696; O2SAT 98
[2024-06-23] MEDS ORDERED: NALOXONE HCL 0.4MG/ML VIAL IV PRN (11:00)
[2024-06-23 12:00] VITALS: BP 139/76; PULSE 75; RESP 13; TEMP 36.16956; O2SAT 95
[2024-06-23 16:00] VITALS: BP 169/94; PULSE 78; RESP 14; TEMP 36.78072; O2SAT 78
[2024-06-23] MEDS: NITROGLYCERIN OINT 1GM/INCH UDPKT TD SCH (22:58)
[2024-06-24] VITALS (12 sets, daily range): BP systolic 127–186; BP diastolic 63–95; PULSE 81–92; RESP 16–20; TEMP 36.114–37.05852; O2SAT 91–100
[2024-06-24 07:02] LABS: BASOPHILS % 1.5 % (0.0-2.0); EOSINOPHILS % 6.8 % (0.0-5.0); HEMATOCRIT. 27.8 % (36.0-48.0); LYMPHOCYTES % 14.5 % (20.0-50.0); MEAN CORPUSCULAR HEMOGLOBIN 28.7 pg (28.0-32.0); MEAN CORPUSCULAR HGB CONC 32.4 g/dL (31.0-37.0); MEAN CORPUSCULAR VOLUME 88.5 fL (81.0-99.0); MEAN PLATELET VOLUME 8.8 fl (7.4-10.4); MONOCYTES % 7.8 % (2.0-8.0); NEUTROPHILS % 69.4 % (40.0-76.0); PLATELET 283 x1000/uL (130-400); RED BLOOD CELL COUNT 3.14 mill/uL (4.2-5.4); WHITE BLOOD COUNT 6.1 x1000/uL (4.5-11.0)
[2024-06-24 07:04] LABS: CHLORIDE 98 mEq/L (98-107)
[2024-06-24 07:05] LABS: SODIUM 132 mEq/L (136-145)
[2024-06-24 07:07] LABS: CALCIUM 7.8 mg/dL (8.7-10.4); CARBON DIOXIDE 25 mEq/L (21-32)
[2024-06-24 07:12] LABS: UREA NITROGEN BLOOD 68 mg/dL (9-23)
[2024-06-24 07:13] LABS: ALANINE AMINOTRANSFERASE 68 IU/L (10-49)
[2024-06-24 07:14] LABS: ASPARTATE AMINOTRANSFERASE 40 IU/L (<34); BILIRUBIN TOTAL < 0.2 mg/dL (0.1-1.0); PHOSPHORUS 6.4 mg/dL (2.5-4.9); PROTEIN TOTAL 5.8 g/dL (6.0-8.3)
[2024-06-24 07:17] LABS: GLUCOSE 471 mg/dL (70-105)
[2024-06-24 07:18] LABS: CREATININE 5.7 mg/dL (0.6-1.0)
[2024-06-24 07:21] LABS: BILIRUBIN DIRECT < 0.1 mg/dL (<=3.0)
[2024-06-24 08:26] LABS: POTASSIUM 6.5 mEq/L (3.5-5.1)
[2024-06-24] MEDS: CALCIUM ACETATE 667MG CAPSULE PO SCH (18:07)
[2024-06-25] VITALS: BP 154/79; PULSE 85; RESP 18; TEMP 36.3918
[2024-06-25 04:00] VITALS: BP 155/78; PULSE 88; RESP 20; TEMP 36.44736; O2SAT 100
[2024-06-25 08:00] VITALS: BP 136/74; PULSE 78; RESP 20; TEMP 36.83628
[2024-06-25 12:00] VITALS: BP 98/70; PULSE 84; RESP 18; TEMP 36.6696; O2SAT 95
[2024-06-25 16:00] VITALS: BP 144/79; PULSE 84; RESP 16; TEMP 37.00296; O2SAT 95
[2024-06-25 20:00] VITALS: BP 131/74; PULSE 82; RESP 18; TEMP 36.16956; O2SAT 95
[2024-06-25 22:38] LABS: POTASSIUM 6.1 mEq/L (3.5-5.1)
[2024-06-25 22:39] LABS: CALCIUM 7.9 mg/dL (8.7-10.4)
[2024-06-25 22:42] LABS: HEMATOCRIT 24.8 % (36.0-48.0); HEMOGLOBIN 8.2 g/dL (12.0-16.0); MEAN CORPUSCULAR HEMOGLOBIN 29.4 pg (28.0-32.0); MEAN CORPUSCULAR HGB CONC 33.2 g/dL (31.0-37.0); MEAN CORPUSCULAR VOLUME 88.6 fL (81.0-99.0); PLATELET 294 x1000/uL (130-400); RED CELL DISTRIBUTION WIDTH 14.6 % (11.6-14.6); WHITE BLOOD COUNT 6.8 x1000/uL (4.5-11.0)
[2024-06-25 22:46] LABS: CREATININE 5.2 mg/dL (0.6-1.0)
[2024-06-26] VITALS (13 sets, daily range): BP systolic 123–192; BP diastolic 43–101; PULSE 78–104; RESP 16–20; TEMP 35.94732–36.61404; O2SAT 96–100
[2024-06-26 08:21] LABS: BASOPHILS % 1.4 % (0.0-2.0); EOSINOPHILS % 6.8 % (0.0-5.0); HEMATOCRIT. 25.5 % (36.0-48.0); HEMOGLOBIN. 8.4 g/dL (12.0-16.0); MEAN CORPUSCULAR HEMOGLOBIN 29.2 pg (28.0-32.0); MEAN CORPUSCULAR HGB CONC 32.9 g/dL (31.0-37.0); MEAN CORPUSCULAR VOLUME 88.8 fL (81.0-99.0); MEAN PLATELET VOLUME 8.3 fl (7.4-10.4); MONOCYTES % 8.4 % (2.0-8.0); NEUTROPHILS % 66.4 % (40.0-76.0); PLATELET 308 x1000/uL (130-400); RED BLOOD CELL COUNT 2.88 mill/uL (4.2-5.4); RED CELL DISTRIBUTION WIDTH 15.1 % (11.6-14.6); WHITE BLOOD COUNT 6.9 x1000/uL (4.5-11.0)
[2024-06-26 08:30] LABS: CALCIUM 7.9 mg/dL (8.7-10.4)
[2024-06-26 08:44] LABS: CREATININE 5.7 mg/dL (0.6-1.0); POTASSIUM 6.9 mEq/L (3.5-5.1)
[2024-06-26] MEDS: INSULIN REGULAR (HUMULIN R) 1000UNITS/10ML VIAL IV NR (10:30)
[2024-06-26] MEDS ORDERED: ALBUTEROL (0.083%) 2.5MG/3ML NEB HHN NR (10:30)
[2024-06-26] MEDS: FUROSEMIDE 100MG/10ML VIAL IV NR (11:26)
[2024-06-26] MEDS: DEXTROSE 50% WATER 50ML SYRINGE IV NR (11:51)
[2024-06-26] MEDS: SODIUM POLYSTYRENE SULFONATE 15 G/60 ML BOT PO NR (11:52)
[2024-06-26] MEDS: CALCIUM CHLORIDE 1GM/10ML SYR IV NR (13:05)
[2024-06-26 22:30] LABS: POTASSIUM 4.7 mEq/L (3.5-5.1)
[2024-06-27] VITALS (8 sets, daily range): BP systolic 134–187; BP diastolic 72–92; PULSE 82–88; RESP 16–17; TEMP 36.22512–36.50292; O2SAT 95–99
[2024-06-27] MEDS: HYDRALAZINE 10 MG in SODIUM CHLORIDE 0.9% 49.5 ML IV PRN (02:52)
[2024-06-27 08:48] LABS: POTASSIUM 4.8 mEq/L (3.5-5.1)
[2024-06-27 08:50] LABS: CALCIUM 8.1 mg/dL (8.7-10.4)
[2024-06-28] VITALS (15 sets, daily range): BP systolic 121–174; BP diastolic 70–91; PULSE 78–86; RESP 15–19; TEMP 36.3918–37.11408; O2SAT 96–99
[2024-06-28] MEDS: DEXTROSE 50% WATER 50ML SYRINGE IV PRN (06:27)
[2024-06-29] VITALS (15 sets, daily range): BP systolic 143–174; BP diastolic 79–90; PULSE 77–99; RESP 15–18; TEMP 36.22512–37.11408; O2SAT 95–100
[2024-06-29 08:23] LABS: POTASSIUM 5.9 mEq/L (3.5-5.1)
[2024-06-29 08:24] LABS: CALCIUM 8.3 mg/dL (8.7-10.4)
[2024-06-29 08:29] LABS: CREATININE 4.1 mg/dL (0.6-1.0)
[2024-06-29] MEDS: SODIUM ZIRCONIUM CYCLOSILICATE 10GM/PACKET PO SCH (10:56)
[2024-06-30] VITALS: BP 169/84; PULSE 94; RESP 15; TEMP 36.6696; O2SAT 99
[2024-06-30 04:00] VITALS: BP 169/84; PULSE 87; RESP 15; TEMP 36.61404; O2SAT 99
[2024-06-30 08:00] VITALS: BP 135/82; PULSE 82; RESP 18; TEMP 36.44736; O2SAT 95
[2024-06-30] MEDS ORDERED: DIPHENHYDRAMINE 50MG CAPSULE PO PRN (10:15)
[2024-06-30 12:00] VITALS: PULSE 86; RESP 18; TEMP 36.3918; O2SAT 95
[2024-06-30 16:00] VITALS: BP 141/83; PULSE 84; RESP 18; TEMP 36.55848; O2SAT 96
[2024-06-30 20:00] VITALS: BP 138/83; PULSE 90; RESP 19; TEMP 36.55848; O2SAT 99
[2024-06-30] MEDS: BLOOD SUGAR DIAGNOSTIC STRIP TEST SCH (21:04)
[2024-06-30] MEDS: INSULIN LISPRO 100 UNITS/ML SUBCUT SCH (21:15)
[2024-06-30] MEDS: INSULIN LISPRO 100 UNITS/ML SUBCUT NR (23:34)
[2024-07-01] VITALS (15 sets, daily range): BP systolic 115–158; BP diastolic 73–88; PULSE 84–95; RESP 15–18; TEMP 36.114–36.61404; O2SAT 95–100
[2024-07-01 07:35] LABS: POTASSIUM 5.5 mEq/L (3.5-5.1)
[2024-07-01 07:36] LABS: CALCIUM 8.1 mg/dL (8.7-10.4)
[2024-07-01 08:29] LABS: CREATININE 5.3 mg/dL (0.6-1.0)
[2024-07-02] VITALS: BP 155/84; PULSE 93; RESP 19; TEMP 37.05852; O2SAT 98
[2024-07-02 04:00] VITALS: BP 149/82; PULSE 94; RESP 18; TEMP 36.6696; O2SAT 95
[2024-07-02] MEDS: DOCUSATE SODIUM 100MG CAPSULE PO PRN (10:33)
[2024-07-02 12:00] VITALS: BP 137/86; PULSE 84; RESP 20; TEMP 36.6696; O2SAT 98
[2024-07-02] MEDS ORDERED: NITROGLYCERIN 0.4MG TABLET SL SL PRN (14:30)
[2024-07-02] MEDS ORDERED: LABETALOL 5MG/ML 4ML INJ IV ONE (14:30)
[2024-07-02] MEDS: LABETALOL IV NR (14:30)
[2024-07-02] MEDS: SODIUM CHLORIDE 0.9% IV NR (14:30)
[2024-07-02] MEDS: ASPIRIN 325MG EC TABLET PO NR (14:44)
[2024-07-02 16:00] VITALS: BP 164/90; PULSE 98; RESP 19; TEMP 36.6696; O2SAT 98
[2024-07-02] MEDS: FUROSEMIDE 40MG/4ML VIAL IVP NR (17:38)
[2024-07-02 18:17] LABS: POTASSIUM 5.8 mEq/L (3.5-5.1)
[2024-07-02 18:19] LABS: CALCIUM 8.2 mg/dL (8.7-10.4)
[2024-07-02 18:32] LABS: CREATININE 5.1 mg/dL (0.6-1.0)
[2024-07-02 20:00] VITALS: BP 134/80; PULSE 85; RESP 16; TEMP 36.22512; O2SAT 95
[2024-07-02 23:30] VITALS: BP 164/84; PULSE 86; RESP 18; TEMP 36.114; O2SAT 93
[2024-07-02] MEDS: NITROGLYCERIN 0.4MG TABLET SL SL PRN (23:45)
[2024-07-03] VITALS (20 sets, daily range): BP systolic 102–194; BP diastolic 60–102; PULSE 84–103; RESP 14–22; TEMP 36.114–37.28076; O2SAT 93–100
[2024-07-03] MEDS ORDERED: HYDRALAZINE 20 MG in SODIUM CHLORIDE 0.9% 49.5 ML IV PRN (02:00)
[2024-07-03] MEDS: HYDRALAZINE 20MG/ML VIAL IV PRN (02:08)
[2024-07-03] MEDS: CLONIDINE 0.2MG TABLET PO PRN (04:26)
[2024-07-03] MEDS: MINOXIDIL 2.5MG TABLET PO PRN (04:28)
[2024-07-03 05:42] LABS: BASOPHILS % 1.4 % (0.0-2.0); EOSINOPHILS % 7.8 % (0.0-5.0); HEMOGLOBIN. 8.1 g/dL (12.0-16.0); LYMPHOCYTES % 13.6 % (20.0-50.0); MEAN CORPUSCULAR HEMOGLOBIN 28.6 pg (28.0-32.0); MEAN CORPUSCULAR HGB CONC 32.3 g/dL (31.0-37.0); MEAN CORPUSCULAR VOLUME 88.6 fL (81.0-99.0); MEAN PLATELET VOLUME 8.7 fl (7.4-10.4); MONOCYTES % 6.3 % (2.0-8.0); NEUTROPHILS % 70.9 % (40.0-76.0); PLATELET 261 x1000/uL (130-400); RED BLOOD CELL COUNT 2.82 mill/uL (4.2-5.4)
[2024-07-03 05:51] LABS: CALCIUM 8.1 mg/dL (8.7-10.4)
[2024-07-03 06:01] LABS: CREATININE 5.8 mg/dL (0.6-1.0); POTASSIUM 6.9 mEq/L (3.5-5.1)
[2024-07-03] MEDS ORDERED: INSULIN REGULAR (HUMULIN R) 1000UNITS/10ML VIAL IV NR (06:15)
[2024-07-03] MEDS ORDERED: DEXT 5%/0.9% NACL 250 ML IV ONE (06:15)
[2024-07-03] MEDS: SODIUM POLYSTYRENE SULFONATE 15 G/60 ML BOT PO NR (06:59)
[2024-07-03] MEDS: SODIUM BICARBONATE 8.4% 50MEQ/50ML SYR IV NR ×2 (06:59→07:35)
[2024-07-03] MEDS: CALCIUM GLUCONATE 100MG/ML 10ML VIAL IV NR (07:00)
[2024-07-03] MEDS: INSULIN REGULAR (HUMULIN R) 1000UNITS/10ML VIAL IV NR (07:36)
[2024-07-03] MEDS: DEXTROSE 50% WATER 50ML SYRINGE IV NR (07:36)
[2024-07-03] MEDS ORDERED: CALCIUM GLUCONATE 1GM PREMIX 50 ML IV NR ×2 (08:00→09:00)
[2024-07-03 16:59] LABS: POTASSIUM 4.5 mEq/L (3.5-5.1)
[2024-07-03 17:00] LABS: CALCIUM 8.1 mg/dL (8.7-10.4)
[2024-07-03 17:06] LABS: CREATININE 3.6 mg/dL (0.6-1.0)
[2024-07-03 23:33] LABS: PROTHROMBIN TIME 11.3 sec (9.6-11.0)
[2024-07-04] VITALS (12 sets, daily range): BP systolic 100–186; BP diastolic 59–91; PULSE 76–93; RESP 13–18; TEMP 36.6696–37.05852; O2SAT 95–100
[2024-07-05] VITALS (20 sets, daily range): BP systolic 133–174; BP diastolic 75–95; PULSE 81–92; RESP 15–22; TEMP 36.22512–37.00296; O2SAT 96–100
[2024-07-05 07:51] LABS: BASOPHILS % 0.9 % (0.0-2.0); EOSINOPHILS % 5.8 % (0.0-5.0); HEMATOCRIT. 23.2 % (36.0-48.0); HEMOGLOBIN. 7.5 g/dL (12.0-16.0); LYMPHOCYTES % 11.8 % (20.0-50.0); MEAN CORPUSCULAR HEMOGLOBIN 28.9 pg (28.0-32.0); MEAN CORPUSCULAR HGB CONC 32.2 g/dL (31.0-37.0); MEAN CORPUSCULAR VOLUME 89.5 fL (81.0-99.0); MEAN PLATELET VOLUME 8.8 fl (7.4-10.4); NEUTROPHILS % 74.5 % (40.0-76.0); PLATELET 227 x1000/uL (130-400); WHITE BLOOD COUNT 7.2 x1000/uL (4.5-11.0)
[2024-07-05 07:59] LABS: CALCIUM 8.1 mg/dL (8.7-10.4); POTASSIUM 5.3 mEq/L (3.5-5.1)
[2024-07-05 08:08] LABS: CREATININE 5.7 mg/dL (0.6-1.0)
[2024-07-06] VITALS (12 sets, daily range): BP systolic 135–166; BP diastolic 79–91; PULSE 79–95; RESP 13–20; TEMP 36.16956–37.44744; O2SAT 95–100
[2024-07-06] MEDS: ZOLPIDEM TARTRATE 5MG TABLET PO NR (21:34)
[2024-07-07] VITALS (21 sets, daily range): BP systolic 114–173; BP diastolic 71–97; PULSE 76–91; RESP 14–25; TEMP 36.28068–37.05852; O2SAT 89–100
[2024-07-07 06:54] LABS: CALCIUM 8.2 mg/dL (8.7-10.4)
[2024-07-07 06:55] LABS: BASOPHILS % 1.4 % (0.0-2.0); DIFFERENTIAL COMMENT 0; EOSINOPHILS % 7.1 % (0.0-5.0); LYMPHOCYTES % 15.5 % (20.0-50.0); MEAN CORPUSCULAR HEMOGLOBIN 29.1 pg (28.0-32.0); MEAN CORPUSCULAR HGB CONC 32.7 g/dL (31.0-37.0); MEAN CORPUSCULAR VOLUME 88.8 fL (81.0-99.0); MEAN PLATELET VOLUME 9.1 fl (7.4-10.4); MONOCYTES % 7.3 % (2.0-8.0); NEUTROPHILS % 68.7 % (40.0-76.0); PLATELET 201 x1000/uL (130-400); RED BLOOD CELL COUNT 2.38 mill/uL (4.2-5.4); RED CELL DISTRIBUTION WIDTH 14.5 % (11.6-14.6); WHITE BLOOD COUNT 7.3 x1000/uL (4.5-11.0)
[2024-07-07 07:02] LABS: PHOSPHORUS 6.9 mg/dL (2.5-4.9)
[2024-07-07 07:24] LABS: CREATININE 5.8 mg/dL (0.6-1.0)
[2024-07-07 07:51] LABS: HEMATOCRIT. 21.2 % (36.0-48.0); HEMOGLOBIN. 6.9 g/dL (12.0-16.0)
[2024-07-07 08:18] LABS: POTASSIUM 6.3 mEq/L (3.5-5.1)
[2024-07-07] MEDS: SODIUM ZIRCONIUM CYCLOSILICATE 10GM/PACKET PO NR (12:34)
[2024-07-07] MEDS: INSULIN GLARGINE 100 UNITS/ML SUBCUT SCH (21:21)
[2024-07-08] VITALS (22 sets, daily range): BP systolic 147–179; BP diastolic 81–98; PULSE 77–87; RESP 14–21; TEMP 36.16956–37.05852; O2SAT 84–100
[2024-07-08] MEDS: ZOLPIDEM TARTRATE 5MG TABLET PO NR (00:50)
[2024-07-08] MEDS: DEXTROSE 50% WATER 50ML SYRINGE IV PRN (07:28)
[2024-07-08 07:35] LABS: CARBON DIOXIDE 26 mEq/L (21-32); CHLORIDE 102 mEq/L (98-107); POTASSIUM 5.1 mEq/L (3.5-5.1); SODIUM 138 mEq/L (136-145)
[2024-07-08 07:37] LABS: CALCIUM 8.4 mg/dL (8.7-10.4); HEMATOCRIT 27.1 % (36.0-48.0); HEMOGLOBIN 8.9 g/dL (12.0-16.0); MEAN CORPUSCULAR HEMOGLOBIN 29.8 pg (28.0-32.0); MEAN CORPUSCULAR VOLUME 90.3 fL (81.0-99.0); PLATELET 215 x1000/uL (130-400); RED CELL DISTRIBUTION WIDTH 14.5 % (11.6-14.6)
[2024-07-08 07:41] LABS: CREATININE 4.3 mg/dL (0.6-1.0)
[2024-07-08 07:42] LABS: UREA NITROGEN BLOOD 49 mg/dL (9-23)
[2024-07-08 07:44] LABS: PHOSPHORUS 5.5 mg/dL (2.5-4.9)
[2024-07-08 08:00] LABS: GLUCOSE 39 mg/dL (70-105)
[2024-07-08] MEDS: CEFAZOLIN 1000MG PREMIX 50 ML IV NR (08:30)
[2024-07-08] MEDS ORDERED: FENTANYL CITRATE/PF 50MCG/ML 2ML VIAL ONE (08:37)
[2024-07-08] MEDS ORDERED: LIDOCAINE HCL 1% 10 MG/ML 10ML VIAL ONE (08:37)
[2024-07-08] MEDS: FENTANYL CITRATE/PF 50MCG/ML 2ML VIAL IV ONE (08:55)
[2024-07-08] MEDS ORDERED: FENTANYL CITRATE/PF 50MCG/ML 2ML VIAL IV NR (09:45)
[2024-07-08] MEDS: ONDANSETRON HCL 4MG/2ML INJ IV PRN (11:25)
[2024-07-08] MEDS: KETOROLAC 15MG/ML VIAL IV NR (14:51)
[2024-07-08] MEDS: NITROGLYCERIN 0.4MG TABLET SL SL ONE (19:54)
[2024-07-08] MEDS: INSULIN GLARGINE 100 UNITS/ML SUBCUT SCH (21:54)
[2024-07-08] MEDS: EPOETIN ALFA-EPBX 4,000 UNIT/ML VIAL SUBCUT SCH (21:54)
[2024-07-09] VITALS (24 sets, daily range): BP systolic 138–186; BP diastolic 81–96; PULSE 78–98; RESP 16–25; TEMP 36.44736–37.7808; O2SAT 89–97
[2024-07-09] MEDS: ZOLPIDEM TARTRATE 5MG TABLET PO SCH (00:09)
[2024-07-09] MEDS: ACETAMINOPHEN 650MG/20.3ML UDC PO PRN (00:09)
[2024-07-09 18:10] LABS: BG CARBOXYHEMOGLOBIN 0.8 % (0.5-1.5); BG DEOXYHEMOGLOBIN 26.9 % (0.0-5.0); BG HCO3 ACT 28.8 mmol/L (21.0-28.0); BG METHEMOGLOBIN 0.3 % (0.5-1.5); BG OXYGEN SATURATION 72.8 % (94.0-98.0); BG PCO2 39.3 mmHg (32.0-45.0); BG PH 7.483 (7.350-7.450); BG SAMPLE SITE RIGHT RADIAL; BG TOTAL HEMOGLOBIN 9.2 g/dL (12.0-16.0); BG VENT MODE ROOM AIR
[2024-07-10] VITALS: BP 147/86; PULSE 90; RESP 20; TEMP 37.16964; O2SAT 95
== END 2024-07-10 00:06 | disposition home or self-care (01) | DRG 720 ==
LOC: ER 19:01 → EDBEDREQ 19:20 → CVICU 20:45 → EDBEDREQ 20:47 → EDBEDREQTM 20:47 → EDBEDREQSVC 20:47 → 3WST 06-09 19:38 → 6WST 06-24 11:13 → 5EST 07-02 19:04
PROVIDERS: ADMIT Hospitalist; ATTEND Hospitalist
PROC: 30233N1 Transfusion of Nonautologous Red Blood Cells into Peripheral Vein, Percutaneous Approach (ICD-10-PCS; principal; 2024-06-07)
PROC: 02HV33Z Insertion of Infusion Device into Superior Vena Cava, Percutaneous Approach (ICD-10-PCS; 2024-06-07)
PROC: 0W9G30Z Drainage of Peritoneal Cavity with Drainage Device, Percutaneous Approach (ICD-10-PCS; 2024-06-08)
PROC: 02H633Z Insertion of Infusion Device into Right Atrium, Percutaneous Approach (ICD-10-PCS; 2024-06-08)
PROC: 5A1D70Z Performance of Urinary Filtration, Intermittent, Less than 6 Hours Per Day (ICD-10-PCS; 2024-06-08)
PROC: B548ZZA Ultrasonography of Superior Vena Cava, Guidance (ICD-10-PCS; 2024-06-08)
PROC: 5A1D70Z Performance of Urinary Filtration, Intermittent, Less than 6 Hours Per Day (ICD-10-PCS; 2024-06-10)
PROC: 5A1D70Z Performance of Urinary Filtration, Intermittent, Less than 6 Hours Per Day (ICD-10-PCS; 2024-06-12)
PROC: 0W9G30Z Drainage of Peritoneal Cavity with Drainage Device, Percutaneous Approach (ICD-10-PCS; 2024-06-13)
PROC: 5A1D70Z Performance of Urinary Filtration, Intermittent, Less than 6 Hours Per Day (ICD-10-PCS; 2024-06-14)
PROC: 5A1D70Z Performance of Urinary Filtration, Intermittent, Less than 6 Hours Per Day (ICD-10-PCS; 2024-06-16)
PROC: 0W9G3ZZ Drainage of Peritoneal Cavity, Percutaneous Approach (ICD-10-PCS; 2024-06-17)
PROC: 0W9B3ZZ Drainage of Left Pleural Cavity, Percutaneous Approach (ICD-10-PCS; 2024-06-17)
PROC: 5A1D70Z Performance of Urinary Filtration, Intermittent, Less than 6 Hours Per Day (ICD-10-PCS; 2024-06-18)
PROC: 0W993ZZ Drainage of Right Pleural Cavity, Percutaneous Approach (ICD-10-PCS; 2024-06-18)
PROC: 5A1D70Z Performance of Urinary Filtration, Intermittent, Less than 6 Hours Per Day (ICD-10-PCS; 2024-06-20)
PROC: 5A1D70Z Performance of Urinary Filtration, Intermittent, Less than 6 Hours Per Day (ICD-10-PCS; 2024-06-22)
PROC: 5A1D70Z Performance of Urinary Filtration, Intermittent, Less than 6 Hours Per Day (ICD-10-PCS; 2024-06-24)
PROC: 5A1D70Z Performance of Urinary Filtration, Intermittent, Less than 6 Hours Per Day (ICD-10-PCS; 2024-06-26)
PROC: 5A1D70Z Performance of Urinary Filtration, Intermittent, Less than 6 Hours Per Day (ICD-10-PCS; 2024-06-28)
PROC: 5A1D70Z Performance of Urinary Filtration, Intermittent, Less than 6 Hours Per Day (ICD-10-PCS; 2024-06-29)
PROC: 5A1D70Z Performance of Urinary Filtration, Intermittent, Less than 6 Hours Per Day (ICD-10-PCS; 2024-07-01)
PROC: 5A1D70Z Performance of Urinary Filtration, Intermittent, Less than 6 Hours Per Day (ICD-10-PCS; 2024-07-03)
PROC: 5A1D70Z Performance of Urinary Filtration, Intermittent, Less than 6 Hours Per Day (ICD-10-PCS; 2024-07-05)
PROC: 5A1D70Z Performance of Urinary Filtration, Intermittent, Less than 6 Hours Per Day (ICD-10-PCS; 2024-07-07)
PROC: 0JH63XZ Insertion of Tunneled Vascular Access Device into Chest Subcutaneous Tissue and Fascia, Percutaneous Approach (ICD-10-PCS; 2024-07-08)
PROC: 02HV33Z Insertion of Infusion Device into Superior Vena Cava, Percutaneous Approach (ICD-10-PCS; 2024-07-08)
PROC: B5181ZA Fluoroscopy of Superior Vena Cava using Low Osmolar Contrast, Guidance (ICD-10-PCS; 2024-07-08)
PROC: 0W9B3ZZ Drainage of Left Pleural Cavity, Percutaneous Approach (ICD-10-PCS; 2024-07-08)
PROC: 5A1D70Z Performance of Urinary Filtration, Intermittent, Less than 6 Hours Per Day (ICD-10-PCS; 2024-07-09)
DX: A41.9 Sepsis, unspecified organism (principal); J96.01 Acute respiratory failure with hypoxia; R65.21 Severe sepsis with septic shock; E43 Unspecified severe protein-calorie malnutrition; E10.51 Type 1 diabetes mellitus with diabetic peripheral angiopathy without gangrene; D69.6 Thrombocytopenia, unspecified; E72.20 Disorder of urea cycle metabolism, unspecified; E10.649 Type 1 diabetes mellitus with hypoglycemia without coma; D63.8 Anemia in other chronic diseases classified elsewhere; J18.9 Pneumonia, unspecified organism; I13.2 Hypertensive heart and chronic kidney disease with heart failure and with stage 5 chronic kidney disease, or end stage renal disease; K76.6 Portal hypertension; I27.20 Pulmonary hypertension, unspecified; E83.39 Other disorders of phosphorus metabolism; N18.6 End stage renal disease; R18.8 Other ascites; E10.22 Type 1 diabetes mellitus with diabetic chronic kidney disease; E87.5 Hyperkalemia; K74.60 Unspecified cirrhosis of liver; E10.65 Type 1 diabetes mellitus with hyperglycemia; E03.9 Hypothyroidism, unspecified; R00.1 Bradycardia, unspecified; Z99.2 Dependence on renal dialysis; R19.5 Other fecal abnormalities; I1A.0 Resistant hypertension; E83.51 Hypocalcemia; N25.81 Secondary hyperparathyroidism of renal origin; I50.22 Chronic systolic (congestive) heart failure; Z68.1 Body mass index [BMI] 19.9 or less, adult; I16.1 Hypertensive emergency; J98.19 Other pulmonary collapse; L02.821 Furuncle of head [any part, except face]; Z51.5 Encounter for palliative care; Z79.4 Long term (current) use of insulin; Z79.82 Long term (current) use of aspirin; Z79.899 Other long term (current) drug therapy; Z82.49 Family history of ischemic heart disease and other diseases of the circulatory system; Z83.3 Family history of diabetes mellitus; Z91.158 Patient's noncompliance with renal dialysis for other reason; J91.8 Pleural effusion in other conditions classified elsewhere
CPT/HCPCS: 32555; 36415; 36556; 36558; 36589; 36600; 49083; 71045; 71250; 74176; 76604; 76700; 76705; 76770; 76937; 77001; 80048; 80053; 80061; 80076; 80202; 80305; 81003; 82024; 82040; 82105; 82140; 82270; 82306; 82310; 82375; 82533; 82550; 82553; 82570; 82607; 82728; 82746; 82805; 82962; 83036; 83520; 83540; 83550; 83605; 83615; 83735; 83880; 83970; 83986; 84100; 84132; 84134; 84145; 84156; 84439; 84443; 84484; 84550; 84681; 84703; 85014; 85018; 85025; 85027; 85044; 85651; 86038; 86160; 86256; 86301; 86304; 86376; 86705; 86706; 86709; 86850; 86900; 86920; 87340; 87491; 87591; 88108; 88312; 90935; 93005; 93306; 93970; 99152; 99153; 99291; C1750; C1752; C1769; J0360; J0610; J0690; J0696; J0885; J1642; J1650; J1815; J1885; J1940; J2150; J2405; J2470; J2543; J3010; J3370; J3490; J7030; J7050; P9016; G0500

== ENCOUNTER 2024-10-23 10:52 | Inpatient (IN) | payer MEDICAID, OTHER ==
[2024-10-23] VITALS (11 sets, daily range): BP systolic 156–201; BP diastolic 90–108; PULSE 101–107; RESP 17–22; TEMP 36.6–36.72516; O2SAT 94–98
[~2024-10-23] VITALS: Ht 154.9 cm; Wt 38.2 kg
[~2024-10-23 10:52] MED LIST changes: +ALBU05 NEB; +ASPI-1406 MT; +CLON-493 PO; +COR6 MT; +FURO-151 IV; -INSU3INS6 SUBCUT; +LIP40 MT; +LOSA50TA41 MT; +NALO4SPR IV; +ONDA4TAB50 IV; +SPIR25TA MT; +TOPUD PO
[2024-10-23 12:21] LABS: BASOPHILS % 1.2 % (0.0-2.0); EOSINOPHILS % 4.9 % (0.0-5.0); HEMATOCRIT. 38.5 % (36.0-48.0); HEMOGLOBIN. 12.4 g/dL (12.0-16.0); LYMPHOCYTES % 13.7 % (20.0-50.0); MEAN CORPUSCULAR HEMOGLOBIN 29.9 pg (28.0-32.0); MEAN CORPUSCULAR HGB CONC 32.2 g/dL (31.0-37.0); MEAN CORPUSCULAR VOLUME 92.6 fL (81.0-99.0); MEAN PLATELET VOLUME 8.3 fl (7.4-10.4); MONOCYTES % 8.3 % (2.0-8.0); NEUTROPHILS % 71.9 % (40.0-76.0); PLATELET 209 x1000/uL (130-400); RED BLOOD CELL COUNT 4.16 mill/uL (4.2-5.4); RED CELL DISTRIBUTION WIDTH 17.4 % (11.6-14.6); WHITE BLOOD COUNT 4.8 x1000/uL (4.5-11.0)
[2024-10-23 12:23] LABS: CHLORIDE 100 mEq/L (98-107); POTASSIUM 5.7 mEq/L (3.5-5.1); SODIUM 137 mEq/L (136-145)
[2024-10-23 12:24] LABS: CARBON DIOXIDE 28 mEq/L (21-32)
[2024-10-23 12:25] LABS: CALCIUM 8.8 mg/dL (8.7-10.4)
[2024-10-23 12:28] LABS: HCG SCREEN NEGATIVE
[2024-10-23 12:29] LABS: CREATININE 4.5 mg/dL (0.6-1.0); GLUCOSE 251 mg/dL (70-105)
[2024-10-23 12:30] LABS: UREA NITROGEN BLOOD 57 mg/dL (9-23)
[2024-10-23] MEDS: SODIUM POLYSTYRENE SULFONATE 15 G/60 ML BOT PO ONE (12:30)
[2024-10-23 12:45] LABS: TROPONIN I HIGH SENSITIVITY 407 ng/L (3.0-34)
[2024-10-23] MEDS: PIPERACILLIN/TAZO 3.375G/50ML 50 ML IV NR (13:00)
[2024-10-23 13:13] LABS: HEPATITIS B SURFACE ANTIGEN NEGATIVE (Negative)
[2024-10-23] MEDS ORDERED: ONDANSETRON HCL 4MG/2ML INJ IV PRN (13:15)
[2024-10-23] MEDS ORDERED: HYDR100T31 PO (13:17)
[2024-10-23] MEDS ORDERED: ISOS30TA91 PO (13:17)
[2024-10-23 13:33] LABS: HEPATITIS A AB IGM NEGATIVE (Negative)
[2024-10-23 13:34] LABS: HEPATITIS B CORE AB IGM NEGATIVE (Negative); HEPATITIS C AB NON REACTIVE (Neg) (Negative)
[2024-10-23 14:17] LABS: BG DEOXYHEMOGLOBIN 7.6 % (0.0-5.0); BG FRACTION INSPIRED OXYGEN 60; BG HCO3 ACT 23.6 mmol/L (21.0-28.0); BG METHEMOGLOBIN 0.3 % (0.5-1.5); BG OXYGEN SATURATION 92.2 % (94.0-98.0); BG OXYHEMOGLOBIN 90.1 % (94.0-98.0); BG PCO2 39.3 mmHg (32.0-45.0); BG PH 7.397 (7.350-7.450); BG PO2 63.8 mmHg (83.0-108.0); BG SAMPLE SITE RIGHT RADIAL; BG TOTAL HEMOGLOBIN 14.8 g/dL (12.0-16.0); BG VENT MODE MASK - SIMPLE
[2024-10-23] MEDS: VANCOMYCIN 1GM/200ML PMX (BAXTER) IV NR (14:56)
[2024-10-23] MEDS: HYDRALAZINE 20MG/ML VIAL IV ONE (15:44)
[2024-10-23 16:36] LABS: TROPONIN I HIGH SENSITIVITY 287 ng/L (3.0-34)
[2024-10-23] MEDS: INSULIN LISPRO 100 UNITS/ML SUBCUT SCH (17:20)
[2024-10-23] MEDS: HYDRALAZINE 20MG/ML VIAL IV PRN (19:41)
[2024-10-23] MEDS ORDERED: CEFTRIAXONE 1GM/50ML 50 ML IV SCH (20:00)
[2024-10-23 20:49] LABS: TROPONIN I HIGH SENSITIVITY 315 ng/L (3.0-34)
[2024-10-23] MEDS: CEFTRIAXONE 1GM/50ML 50 ML IV SCH (21:00)
[2024-10-23] MEDS: ATORVASTATIN CALCIUM 40MG TABLET PO SCH (21:00)
[2024-10-23] MEDS ORDERED: AZITHROMYCIN 500MG/250ML 250 ML IV SCH (21:00)
[2024-10-23] MEDS: BLOOD SUGAR DIAGNOSTIC STRIP TEST SCH (21:00)
[2024-10-23] MEDS: ACETAMINOPHEN 325MG TABLET PO PRN (21:45)
[2024-10-23] MEDS: CLONIDINE 0.1MG TABLET PO PRN (21:45)
[2024-10-23] MEDS: AZITHROMYCIN 500MG/250ML 250 ML IV SCH (22:00)
[2024-10-23] MEDS: INSULIN GLARGINE 100 UNITS/ML SUBCUT SCH (22:00)
[2024-10-24] VITALS (14 sets, daily range): BP systolic 153–200; BP diastolic 85–104; PULSE 70–100; RESP 16–19; TEMP 36.6–37.5; O2SAT 95–100
[2024-10-24] MEDS: DEXTROSE 50% WATER 50ML SYRINGE IV PRN (02:08)
[2024-10-24] MEDS: CLONIDINE 0.2MG TABLET PO NR (04:54)
[2024-10-24] MEDS ORDERED: CARVEDILOL 12.5MG TABLET PO SCH (06:45)
[2024-10-24] MEDS: CARVEDILOL 12.5MG TABLET PO NR (06:45)
[2024-10-24] MEDS: ASPIRIN 81MG EC TABLET PO SCH (08:21)
[2024-10-24] MEDS: LOSARTAN 50 MG TABLET PO SCH (08:21)
[2024-10-24] MEDS: FUROSEMIDE 40MG TABLET PO SCH (08:22)
[2024-10-24] MEDS: SPIRONOLACTONE 25MG TABLET PO SCH (08:22)
[2024-10-24] MEDS: AMLODIPINE 10MG TABLET PO SCH (08:22)
[2024-10-24] MEDS ORDERED: CARVEDILOL 6.25 MG TABLET PO SCH (09:00)
[2024-10-24] MEDS: ISOSORBIDE MONONITRATE 60MG TABLET SR 24HR PO SCH (09:34)
[2024-10-24 10:12] LABS: BASOPHILS % 1.2 % (0.0-2.0); EOSINOPHILS % 3.6 % (0.0-5.0); HEMATOCRIT. 34.5 % (36.0-48.0); HEMOGLOBIN. 11.2 g/dL (12.0-16.0); LYMPHOCYTES % 14.9 % (20.0-50.0); MEAN CORPUSCULAR HEMOGLOBIN 30.4 pg (28.0-32.0); MEAN CORPUSCULAR HGB CONC 32.5 g/dL (31.0-37.0); MEAN CORPUSCULAR VOLUME 93.6 fL (81.0-99.0); MEAN PLATELET VOLUME 8.7 fl (7.4-10.4); MONOCYTES % 8.3 % (2.0-8.0); PLATELET 195 x1000/uL (130-400); RED BLOOD CELL COUNT 3.69 mill/uL (4.2-5.4); RED CELL DISTRIBUTION WIDTH 17.7 % (11.6-14.6); WHITE BLOOD COUNT 4.9 x1000/uL (4.5-11.0)
[2024-10-24 10:20] LABS: POTASSIUM 4.9 mEq/L (3.5-5.1)
[2024-10-24 10:21] LABS: CALCIUM 8.4 mg/dL (8.7-10.4)
[2024-10-24 10:26] LABS: CREATININE 3.3 mg/dL (0.6-1.0)
[2024-10-24] MEDS: ISOSORBIDE MONONITRATE 60MG TABLET SR 24HR PO NR (20:46)
[2024-10-25] VITALS (11 sets, daily range): BP systolic 160–189; BP diastolic 79–104; PULSE 70–90; RESP 14–20; TEMP 36.5–37.1; O2SAT 98–100
[2024-10-25] MEDS: ZOLPIDEM TARTRATE 5MG TABLET PO PRN (00:29)
[2024-10-25 07:55] LABS: POTASSIUM 4.5 mEq/L (3.5-5.1)
[2024-10-25 07:56] LABS: CALCIUM 8.5 mg/dL (8.7-10.4)
[2024-10-25 07:57] LABS: EOSINOPHILS % 8.2 % (0.0-5.0); HEMATOCRIT. 34.4 % (36.0-48.0); HEMOGLOBIN. 11.2 g/dL (12.0-16.0); LYMPHOCYTES % 21.5 % (20.0-50.0); MEAN CORPUSCULAR HEMOGLOBIN 30.9 pg (28.0-32.0); MEAN CORPUSCULAR HGB CONC 32.6 g/dL (31.0-37.0); MEAN CORPUSCULAR VOLUME 94.8 fL (81.0-99.0); MONOCYTES % 9.6 % (2.0-8.0); NEUTROPHILS % 59.7 % (40.0-76.0); PLATELET 174 x1000/uL (130-400); RED BLOOD CELL COUNT 3.63 mill/uL (4.2-5.4); RED CELL DISTRIBUTION WIDTH 17.1 % (11.6-14.6); WHITE BLOOD COUNT 4.3 x1000/uL (4.5-11.0)
[2024-10-25 08:01] LABS: CREATININE 3.7 mg/dL (0.6-1.0)
[2024-10-25] MEDS: CARVEDILOL 6.25 MG TABLET PO SCH (08:04)
[2024-10-25] MEDS: FOLIC ACID/VITAMIN B COMP W-C TABLET PO SCH (11:26)
[2024-10-25] MEDS: CARVEDILOL 6.25 MG TABLET PO NR (11:26)
[2024-10-25] MEDS: LOSARTAN 100 MG TABLET PO SCH (11:27)
[2024-10-25] MEDS: SEVELAMER CARBONATE 800 MG TABLET PO SCH (12:52)
[2024-10-25] MEDS: CARVEDILOL 12.5MG TABLET PO SCH (21:30)
[2024-10-26] VITALS (24 sets, daily range): BP systolic 130–224; BP diastolic 63–111; PULSE 64–114; RESP 11–21; TEMP 36.6–37; O2SAT 93–100
[2024-10-26 06:52] LABS: POTASSIUM 5.7 mEq/L (3.5-5.1)
[2024-10-26 06:54] LABS: CALCIUM 8.6 mg/dL (8.7-10.4)
[2024-10-26 07:06] LABS: CREATININE 5.1 mg/dL (0.6-1.0)
[2024-10-26 07:11] LABS: BASOPHILS % 0.7 % (0.0-2.0); EOSINOPHILS % 4.7 % (0.0-5.0); HEMATOCRIT. 34.8 % (36.0-48.0); HEMOGLOBIN. 11.5 g/dL (12.0-16.0); LYMPHOCYTES % 11.4 % (20.0-50.0); MEAN CORPUSCULAR HEMOGLOBIN 30.6 pg (28.0-32.0); MEAN CORPUSCULAR VOLUME 92.5 fL (81.0-99.0); MEAN PLATELET VOLUME 9.1 fl (7.4-10.4); MONOCYTES % 4.9 % (2.0-8.0); NEUTROPHILS % 78.3 % (40.0-76.0); PLATELET 198 x1000/uL (130-400); RED BLOOD CELL COUNT 3.76 mill/uL (4.2-5.4); RED CELL DISTRIBUTION WIDTH 16.8 % (11.6-14.6)
[2024-10-26] MEDS: HYDRALAZINE HCL 25MG TABLET PO SCH (09:53)
[2024-10-26] MEDS: SODIUM ZIRCONIUM CYCLOSILICATE 10GM/PACKET PO SCH (09:54)
[2024-10-26] MEDS: CARVEDILOL 12.5MG TABLET PO SCH (10:00)
== END 2024-10-26 18:35 | disposition home or self-care (01) | DRG 194 ==
LOC: ER 10:52 → 3WST 12:25 → EDBEDREQTM 12:32 → EDBEDREQ 12:32
PROVIDERS: ADMIT Internal Medicine; ATTEND Internal Medicine
PROC: 5A1D70Z Performance of Urinary Filtration, Intermittent, Less than 6 Hours Per Day (ICD-10-PCS; principal; 2024-10-23)
PROC: 5A1D70Z Performance of Urinary Filtration, Intermittent, Less than 6 Hours Per Day (ICD-10-PCS; 2024-10-24)
PROC: 5A1D70Z Performance of Urinary Filtration, Intermittent, Less than 6 Hours Per Day (ICD-10-PCS; 2024-10-25)
DX: I13.2 Hypertensive heart and chronic kidney disease with heart failure and with stage 5 chronic kidney disease, or end stage renal disease (principal); I21.A1 Myocardial infarction type 2; J18.9 Pneumonia, unspecified organism; E87.20 Acidosis, unspecified; I27.20 Pulmonary hypertension, unspecified; N17.9 Acute kidney failure, unspecified; N18.6 End stage renal disease; I16.0 Hypertensive urgency; I50.23 Acute on chronic systolic (congestive) heart failure; R18.8 Other ascites; E10.22 Type 1 diabetes mellitus with diabetic chronic kidney disease; Z99.2 Dependence on renal dialysis; E87.5 Hyperkalemia; D64.9 Anemia, unspecified; Z79.4 Long term (current) use of insulin; I1A.0 Resistant hypertension
CPT/HCPCS: 36415; 36600; 71045; 80048; 82375; 82805; 82962; 83036; 83735; 84100; 84484; 84703; 85025; 86705; 86709; 87340; 90935; 93005; 99291; A4606; J0360; J0456; J0696; J1815; J2543; J3370

== ENCOUNTER 2025-02-19 17:03 | Emergency (ER) | payer MEDICAID, OTHER ==
[~2025-02-19] VITALS: Ht 154.9 cm; Wt 42.0 kg
[~2025-02-19 17:03] MED LIST changes: +HYDR100T31 PO; +ISOS30TA91 PO
[2025-02-19 17:05] VITALS: BP 163/73; PULSE 80; RESP 18; TEMP 37.1; O2SAT 96; O2SAT 99
== END 2025-02-19 19:18 | disposition left against medical advice (07) ==
LOC: ER 17:03
DX: M79.602 Pain in left arm (principal); M79.605 Pain in left leg; Z53.21 Procedure and treatment not carried out due to patient leaving prior to being seen by health care provider